=== PATIENT | male | born 1935 | race Two or more races ===

== ENCOUNTER 2018-03-04 07:45 | Outpatient (CLI) | payer OTHER ==
[~2018-03-04 07:45] MED LIST: GABAPENTIN300 MG PO
== END 2018-03-04 11:16 | disposition home or self-care (01) ==
LOC: NUCLEAR 07:45
DX: I25.10 Atherosclerotic heart disease of native coronary artery without angina pectoris (principal); E11.9 Type 2 diabetes mellitus without complications; I11.9 Hypertensive heart disease without heart failure
CPT/HCPCS: 78452; 93017; A9500; J0153